=== PATIENT | female | born 1980 | race Caucasian/White ===

== ENCOUNTER 2018-01-15 13:35 | Inpatient (IN) | payer MEDICAID, OTHER ==
[~2018-01-15] VITALS: Ht 177.8 cm; Wt 51.2 kg
[~2018-01-15 13:35] MED LIST: DIAZ2 PO; PERC10TA27 PO
[2018-01-15 14:09] VITALS: BP 122/80; PULSE 97; RESP 16; TEMP 98.1; O2SAT 100
[2018-01-15] MEDS ORDERED: DIAZ10 PO (14:14)
[2018-01-15] MEDS ORDERED: OXYC1TAB36 PO (14:14)
[2018-01-15 15:45] LABS: AUTOMATED NEUTROPHIL # 2.6 TH/MM3 (1.8-7.7); BASOPHIL # 0.1 TH/MM3 (0-0.2); BASOPHIL % 1.3 % (0.0-2.0); EOSINOPHIL % 0.7 % (0.0-4.0); HEMATOCRIT 36.9 % (35.0-46.0); HEMOGLOBIN 11.7 GM/DL (11.6-15.3); LYMPH % 40.8 % (9.0-44.0); LYMPHOCYTE # 2.2 TH/MM3 (1.0-4.8); MEAN CELL VOLUME 71.8 FL (80.0-100.0); MEAN CORPUSCULAR HEMOGLOBIN 22.7 PG (27.0-34.0); MEAN CORPUSCULAR HGB CONC 31.6 % (32.0-36.0); MEAN PLATELET VOLUME 7.7 FL (7.0-11.0); MONO % 9.1 % (0.0-8.0); MONOCYTE # 0.5 TH/MM3 (0-0.9); NEUT % 48.1 % (16.0-70.0); PLATELET COUNT 380 TH/MM3 (150-450); RED BLOOD COUNT 5.13 MIL/MM3 (4.00-5.30); RED CELL DISTRIBUTION WIDTH 22.9 % (11.6-17.2); WHITE BLOOD COUNT 5.3 TH/MM3 (4.0-11.0)
[2018-01-15] MEDS ORDERED: LORazepam 2 MG/ML VIAL IV PUSH PRN ×4 (16:45)
[2018-01-15] MEDS ORDERED: LORazepam 1 MG TAB PO PRN (16:45)
[2018-01-15] MEDS ORDERED: FLUMAZENIL 0.5 MG/5 ML VIAL IV PUSH PRN (16:45)
[2018-01-15] MEDS ORDERED: LORazepam 2 MG TAB PO PRN (16:45)
[2018-01-15] MEDS ORDERED: DIVA250ER PO (16:58)
[2018-01-15] MEDS ORDERED: CITA10TA4 PO (16:58)
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
[2018-01-15 18:33] VITALS: BP 107/69; PULSE 89; RESP 18; TEMP 98.1; O2SAT 99
[2018-01-15 18:34] LABS: BACTERIA, URINE MANY /hpf; BILIRUBIN, URINE NEG (NEG); BLOOD, URINE NEG (NEG); GLUCOSE,URINE NEG (NEG); KETONE, URINE 10 mg/dL (NEG); MUCUS URINE MOD /lpf (OCC); NITRITE,URINE POS (NEG); PH, URINE 6.5 (5.0-8.5); SQUAMOUS EPITHELIAL CELL URINE 7 /hpf (0-5); URINE COLOR YELLOW (YELLW/STRAW); URINE LEUKOCYTE ESTERASE SMALL (NEG)
[2018-01-15 19:00] VITALS: BP 103/64; PULSE 82; RESP 18
[2018-01-15 20:49] LABS: ALBUMIN 3.7 GM/DL (3.4-5.0); ALKALINE PHOSPHATASE 66 U/L (45-117); ALT (GPT) 15 U/L (10-53); AST (GOT) 10 U/L (15-37); BICARBONATE 25.3 MEQ/L (21.0-32.0); BLOOD UREA NITROGEN 14 MG/DL (7-18); CALCIUM 9.4 MG/DL (8.5-10.1); CHLORIDE 99 MEQ/L (98-107); CREATININE 0.68 MG/DL (0.50-1.00); GLOMERULAR FILTRATION RATE 97 ML/MIN (>89); GLUCOSE,RANDOM 102 MG/DL (74-106); SODIUM (NA) 138 MEQ/L (136-145); TOTAL BILIRUBIN ADULT 0.7 MG/DL (0.2-1.0); TOTAL PROTEIN 7.6 GM/DL (6.4-8.2)
[2018-01-15 20:52] LABS: ACETAMINOPHEN LESS THAN 2.0 MCG/ML (10.0-30.0)
[2018-01-15] MEDS: SULFAMETHOXAZOLE-TRIMETHOPRIM DS 800-160 MG TAB PO SCH (21:00)
[2018-01-15 22:10] VITALS: BP 65/86; PULSE 86; RESP 18
[2018-01-15 22:16] VITALS: BP 102/65
--- NOTE | 2018-01-15 22:40 | PD ---
Physical Exam Time Seen by Provider: 22:39 Narrative Please refer to previous providers documentation for details from the patient's current visit Data Data Last Documented VS Vital Signs Date Time Temp Pulse Resp B/P (MAP) Pulse Ox O2 Delivery O2 Flow Rate FiO2 01/15/18 22:16 102/65 (77) 01/15/18 22:10 86 18 Room Air 01/15/18 18:33 98.1 99 Orders Orders Diet Regular Basic (01/15/18 Dinner) Complete Blood Count With Diff (01/15/18 15:08) Comprehensive Metabolic Panel (01/15/18 15:08) Thyroid Stimulating Hormone (01/15/18 15:08) Urinalysis - C+S If Indicated (01/15/18 15:08) Ed Urine Pregnancytest Poc (01/15/18 15:08) Psych Screen (01/15/18 15:08) Drug Screen, Random Urine (01/15/18 15:08) Alcohol (Ethanol) (01/15/18 15:08) Salicylates (Aspirin) (01/15/18 15:08) Tylenol (Acetaminophen) (01/15/18 15:08) Alcohol Withdrawal Asmt-Ciwa ONCE (01/15/18 16:38) Flumazenil Inj (Romazicon Inj) (01/15/18 16:45) Lorazepam (Ativan) (01/15/18 16:45) Lorazepam Inj (Ativan Inj) (01/15/18 16:45) Lorazepam (Ativan) (01/15/18 16:45) Lorazepam Inj (Ativan Inj) (01/15/18 16:45) Lorazepam Inj (Ativan Inj) (01/15/18 16:45) Lorazepam Inj (Ativan Inj) (01/15/18 16:45) Urine Culture (01/15/18 17:35) Sulfamet-Trimeth Ds 800-160 Mg (Bactrim (01/15/18 21:00) Valproic Acid (Depakene) (01/15/18 19:23) Valproic Acid (Depakene) (01/15/18 21:12) Ammonia (01/15/18 21:18) Electrocardiogram (01/15/18 ) Call Poison Control (01/15/18 22:28) Labs Laboratory Tests Test 01/15/18 14:26 01/15/18 17:35 01/15/18 19:30 01/15/18 21:30 White Blood Count 5.3 TH/MM3 Red Blood Count 5.13 MIL/MM3 Hemoglobin 11.7 GM/DL Hematocrit 36.9 % Mean Corpuscular Volume 71.8 FL Mean Corpuscular Hemoglobin 22.7 PG Mean Corpuscular Hemoglobin Concent 31.6 % Red Cell Distribution Width 22.9 % Platelet Count 380 TH/MM3 Mean Platelet Volume 7.7 FL Neutrophils (%) (Auto) 48.1 % Lymphocytes (%) (Auto) 40.8 % Monocytes (%) (Auto) 9.1 % Eosinophils (%) (Auto) 0.7 % Basophils (%) (Auto) 1.3 % Neutrophils # (Auto) 2.6 TH/MM3 Lymphocytes # (Auto) 2.2 TH/MM3 Monocytes # (Auto) 0.5 TH/MM3 Eosinophils # (Auto) 0.0 TH/MM3 Basophils # (Auto) 0.1 TH/MM3 CBC Comment DIFF FINAL Differential Comment Urine Color YELLOW Urine Turbidity HAZY Urine pH 6.5 Urine Specific [place] 1.019 Urine Protein TRACE mg/dL Urine Glucose (UA) NEG mg/dL Urine Ketones 10 mg/dL Urine Occult Blood NEG Urine Nitrite POS Urine Bilirubin NEG Urine Urobilinogen LESS THAN 2.0 MG/DL Urine Leukocyte Esterase SMALL Urine RBC 1 /hpf Urine WBC 11 /hpf Urine Squamous Epithelial Cells 7 /hpf Urine Bacteria MANY /hpf Urine Mucus MOD /lpf Microscopic Urinalysis Comment CULTURE INDICATED Urine Opiates Screen NEG Urine Barbiturates Screen NEG Urine Amphetamines Screen NEG Urine Benzodiazepines Screen POS Urine Cocaine Screen NEG Urine Cannabinoids Screen NEG Blood Urea Nitrogen 14 MG/DL Creatinine 0.68 MG/DL Random Glucose 102 MG/DL Total Protein 7.6 GM/DL Albumin 3.7 GM/DL Calcium Level 9.4 MG/DL Alkaline Phosphatase 66 U/L Aspartate Amino Transf (AST/SGOT) 10 U/L Alanine Aminotransferase (ALT/SGPT) 15 U/L Total Bilirubin 0.7 MG/DL Sodium Level 138 MEQ/L Potassium Level 4.1 MEQ/L Chloride Level 99 MEQ/L Carbon Dioxide Level 25.3 MEQ/L Anion Gap 14 MEQ/L Estimat Glomerular Filtration Rate 97 ML/MIN Thyroid Stimulating Hormone 3rd Gen 0.950 uIU/ML Salicylates Level LESS THAN 1.7 MG/DL Acetaminophen Level LESS THAN 2.0 MCG/ML Valproic Acid (Depakene) Level 125 MCG/ML 155 MCG/ML Ethyl Alcohol Level LESS THAN 3 MG/DL Ammonia 61 MCMOL/L [facility] Medical Record Reviewed: Yes Supervised Visit with PADDY: No Narrative Course 37-year-old female with history of personality disorder and alcohol dependency as well as seizure disorder, presents emergency department for evaluation under a Velasco act. Patient was seen and evaluated initially and signed out to me with lab work pending. Depakote level was added and it is reported to me at 2100 that the patient's Depakote level is 125. I discussed this with my attending physician. EKG and ammonia level are added as well as repeat Depakote level. Laboratory Tests Test 01/15/18 14:26 01/15/18 17:35 01/15/18 19:30 01/15/18 21:30 White Blood Count 5.3 TH/MM3 Red Blood Count 5.13 MIL/MM3 Hemoglobin 11.7 GM/DL Hematocrit 36.9 % Mean Corpuscular Volume 71.8 FL Mean Corpuscular Hemoglobin 22.7 PG Mean Corpuscular Hemoglobin Concent 31.6 % Red Cell Distribution Width 22.9 % Platelet Count 380 TH/MM3 Mean Platelet Volume 7.7 FL Neutrophils (%) (Auto) 48.1 % Lymphocytes (%) (Auto) 40.8 % Monocytes (%) (Auto) 9.1 % Eosinophils (%) (Auto) 0.7 % Basophils (%) (Auto) 1.3 % Neutrophils # (Auto) 2.6 TH/MM3 Lymphocytes # (Auto) 2.2 TH/MM3 Monocytes # (Auto) 0.5 TH/MM3 Eosinophils # (Auto) 0.0 TH/MM3 Basophils # (Auto) 0.1 TH/MM3 CBC Comment DIFF FINAL Differential Comment Urine Color YELLOW Urine Turbidity HAZY Urine pH 6.5 [address]rine Specific [place] 1.019 Urine Protein TRACE mg/dL Urine Glucose (UA) NEG mg/dL Urine Ketones 10 mg/dL Urine Occult Blood NEG Urine Nitrite POS Urine Bilirubin NEG Urine Urobilinogen LESS THAN 2.0 MG/DL Urine Leukocyte Esterase SMALL Urine RBC 1 /hpf Urine WBC 11 /hpf Urine Squamous Epithelial Cells 7 /hpf Urine Bacteria MANY /hpf Urine Mucus MOD /lpf Microscopic Urinalysis Comment CULTURE INDICATED Urine Opiates Screen NEG Urine Barbiturates Screen NEG Urine Amphetamines Screen NEG Urine Benzodiazepines Screen POS Urine Cocaine Screen NEG Urine Cannabinoids Screen NEG Blood Urea Nitrogen 14 MG/DL Creatinine 0.68 MG/DL Random Glucose 102 MG/DL Total Protein 7.6 GM/DL Albumin 3.7 GM/DL Calcium Level 9.4 MG/DL Alkaline Phosphatase 66 U/L Aspartate Amino Transf (AST/SGOT) 10 U/L Alanine Aminotransferase (ALT/SGPT) 15 U/L Total Bilirubin 0.7 MG/DL Sodium Level 138 MEQ/L Potassium Level 4.1 MEQ/L Chloride Level 99 MEQ/L Carbon Dioxide Level 25.3 MEQ/L Anion Gap 14 MEQ/L Estimat Glomerular Filtration Rate 97 ML/MIN Thyroid Stimulating Hormone 3rd Gen 0.950 uIU/ML Salicylates Level LESS THAN 1.7 MG/DL Acetaminophen Level LESS THAN 2.0 MCG/ML Ethyl Alcohol Level LESS THAN 3 MG/DL Ammonia 61 MCMOL/L Valproic Acid (Depakene) Level 155 MCG/ML Repeat Depakote level is 155. Patient is moved to a medical bed in place to monitor. Call was placed to [place] hospitalist for admission. Diagnosis Primary Impression: Urinary tract infection Qualified Codes: N39.0 - Urinary tract infection, site not specified Additional Impressions: Valproic acid toxicity Qualified Codes: T42.6X4A - Poisoning by other antiepileptic and sedative- hypnotic drugs, undetermined, initial encounter Hyperammonemia Alcohol dependence Qualified Codes: F10.29 - Alcohol dependence with unspecified alcohol-induced disorder Admitting Information Admitting Physician Requests: Admit Condition: Stable Ciara Hernandez January 15, 2018 22:40
--- NOTE | 2018-01-15 22:54 | PD ---
Physical Exam Narrative I, Dr. Lara, have reviewed the advance practice practitioner's documentation and am in agreement, met with the patient face to face, made the diagnosis, and the medical decision making was done by me. *My assessment and Findings: Suicidal ideation vs. depression 37yo F with personality disorder under Velasco Act because of suicidal ideation. Labs reviewed, no leukocytosis. H/H normal. CMP unremarkable. Normal anion gap. TSH normal. Utox is positive for benzodiazepine. UA showed positive nitrite. Pt given bactrim. Acetaminophen negative. Salicylate level negative. Alcohol negative. Valproic acid level is elevated at 125. Pt said she did take an extra depakote 1000mg PO this morning because she had a seizure and normally takes it at night. Pt has normal mental status, is AAOx3. Ammonia is mildly elevated which can be normal in patient with chronic valproic acid use. EKG showed NSR 84bpm. Normal axis. QTc 408ms. QRS normal. Repeat valproic acid level 2 hours after the first is increasing to 155. Since the level is increasing, will admit the patient to medicine service with a psych consult. I discussed with poison control and they recommended 50gm of activated chorcoal now and to repeat valproic acid level every 4 to 6 hours until there is 2 level that is trending down. Said we can consider 25gm of activated chorcoal in 2 to 4 hours if repeat valproic acid level is still going up. Discussed with Dr. Arias and admitted to medicine. Data Data Last Documented VS Vital Signs Date Time Temp Pulse Resp B/P (MAP) Pulse Ox O2 Delivery O2 Flow Rate FiO2 01/15/18 22:16 102/65 (77) 01/15/18 22:10 86 18 Room Air 01/15/18 18:33 98.1 99 Orders Orders Diet Regular Basic (01/15/18 Dinner) Complete Blood Count With Diff (01/15/18 15:08) Comprehensive Metabolic Panel (01/15/18 15:08) Thyroid Stimulating Hormone (01/15/18 15:08) Urinalysis - C+S If Indicated (01/15/18 15:08) Ed Urine Pregnancytest Poc (01/15/18 15:08) Psych Screen (01/15/18 15:08) Drug Screen, Random Urine (01/15/18 15:08) Alcohol (Ethanol) (01/15/18 15:08) Salicylates (Aspirin) (01/15/18 15:08) Tylenol (Acetaminophen) (01/15/18 15:08) Alcohol Withdrawal Asmt-Ciwa ONCE (01/15/18 16:38) Flumazenil Inj (Romazicon Inj) (01/15/18 16:45) Lorazepam (Ativan) (01/15/18 16:45) Lorazepam Inj (Ativan Inj) (01/15/18 16:45) Lorazepam (Ativan) (01/15/18 16:45) Lorazepam Inj (Ativan Inj) (01/15/18 16:45) Lorazepam Inj (Ativan Inj) (01/15/18 16:45) Lorazepam Inj (Ativan Inj) (01/15/18 16:45) Urine Culture (01/15/18 17:35) Sulfamet-Trimeth Ds 800-160 Mg (Bactrim (01/15/18 21:00) Valproic Acid (Depakene) (01/15/18 19:23) Valproic Acid (Depakene) (01/15/18 21:12) Ammonia (01/15/18 21:18) Electrocardiogram (01/15/18 ) Call Poison Control (01/15/18 22:28) Admit Order (Ed Use Only) (01/15/18 22:45) Consult Psychiatry (01/15/18 ) Labs Laboratory Tests Test 01/15/18 14:26 01/15/18 17:35 01/15/18 19:30 01/15/18 21:30 White Blood Count 5.3 TH/MM3 Red Blood Count 5.13 MIL/MM3 Hemoglobin 11.7 GM/DL Hematocrit 36.9 % Mean Corpuscular Volume 71.8 FL Mean Corpuscular Hemoglobin 22.7 PG Mean Corpuscular Hemoglobin Concent 31.6 % Red Cell Distribution Width 22.9 % Platelet Count 380 TH/MM3 Mean Platelet Volume 7.7 FL Neutrophils (%) (Auto) 48.1 % Lymphocytes (%) (Auto) 40.8 % Monocytes (%) (Auto) 9.1 % Eosinophils (%) (Auto) 0.7 % Basophils (%) (Auto) 1.3 % Neutrophils # (Auto) 2.6 TH/MM3 Lymphocytes # (Auto) 2.2 TH/MM3 Monocytes # (Auto) 0.5 TH/MM3 Eosinophils # (Auto) 0.0 TH/MM3 Basophils # (Auto) 0.1 TH/MM3 CBC Comment DIFF FINAL Differential Comment Urine Color YELLOW Urine Turbidity HAZY Urine pH 6.5 Urine Specific [place] 1.019 Urine Protein TRACE mg/dL Urine Glucose (UA) NEG mg/dL Urine Ketones 10 mg/dL Urine Occult Blood NEG Urine Nitrite POS Urine Bilirubin NEG Urine Urobilinogen LESS THAN 2.0 MG/DL Urine Leukocyte Esterase SMALL Urine RBC 1 /hpf Urine WBC 11 /hpf Urine Squamous Epithelial Cells 7 /hpf Urine Bacteria MANY /hpf Urine Mucus MOD /lpf Microscopic Urinalysis Comment CULTURE INDICATED Urine Opiates Screen NEG Urine Barbiturates Screen NEG Urine Amphetamines Screen NEG Urine Benzodiazepines Screen POS Urine Cocaine Screen NEG Urine Cannabinoids Screen NEG Blood Urea Nitrogen 14 MG/DL Creatinine 0.68 MG/DL Random Glucose 102 MG/DL Total Protein 7.6 GM/DL Albumin 3.7 GM/DL Calcium Level 9.4 MG/DL Alkaline Phosphatase 66 U/L Aspartate Amino Transf (AST/SGOT) 10 U/L Alanine Aminotransferase (ALT/SGPT) 15 U/L Total Bilirubin 0.7 MG/DL Sodium Level 138 MEQ/L Potassium Level 4.1 MEQ/L Chloride Level 99 MEQ/L Carbon Dioxide Level 25.3 MEQ/L Anion Gap 14 MEQ/L Estimat Glomerular Filtration Rate 97 ML/MIN Thyroid Stimulating Hormone 3rd Gen 0.950 uIU/ML Salicylates Level LESS THAN 1.7 MG/DL Acetaminophen Level LESS THAN 2.0 MCG/ML Valproic Acid (Depakene) Level 125 MCG/ML 155 MCG/ML Ethyl Alcohol Level LESS THAN 3 MG/DL Ammonia 61 MCMOL/L [facility] Supervised Visit with PADDY: Yes Interpretation(s) EKG: NSR 84bpm. Normal axis. No ST segment elevation or depression. Narrow QRS. QTc normal at 408ms. Diagnosis Primary Impression: Valproic acid toxicity Qualified Codes: T42.6X4A - Poisoning by other antiepileptic and sedative- hypnotic drugs, undetermined, initial encounter Additional Impression: Urinary tract infection Qualified Codes: N39.0 - Urinary tract infection, site not specified Admitting Information Admitting Physician Requests: Admit Dang Lara DO January 15, 2018 22:54
[2018-01-15] MEDS ORDERED: SODIUM CHLOR 0.9% 1000 ML INJ 1,000 ML IV ONE (23:00)
[2018-01-15] MEDS ORDERED: ACTIVATED CHARCOAL LIQUID 25 GM/120 ML BTL PO/NG ONE (23:00)
[2018-01-15 23:35] VITALS: BP 111/65; PULSE 84; RESP 15; O2SAT 99
[2018-01-16] MEDS ORDERED: SODIUM CHLOR 0.9% 1000 ML INJ 1,000 ML IV SCH (00:25)
[2018-01-16] MEDS ORDERED: ACETAMINOPHEN 325 MG TAB PO PRN (00:30)
[2018-01-16] MEDS ORDERED: SENNOSIDES 8.6 MG TAB PO PRN (00:30)
[2018-01-16] MEDS ORDERED: FLUMAZENIL 0.5 MG/5 ML VIAL IV PUSH PRN (00:30)
[2018-01-16] MEDS ORDERED: BISACODYL 10 MG SUPP RECTAL PRN (00:30)
[2018-01-16] MEDS ORDERED: LORazepam 2 MG/ML VIAL IV PUSH PRN ×4 (00:30)
[2018-01-16] MEDS ORDERED: LORazepam 2 MG TAB PO PRN (00:30)
[2018-01-16] MEDS ORDERED: LACTULOSE SYRUP 20 GM/30 ML CUP PO PRN (00:30)
[2018-01-16] MEDS ORDERED: NALOXONE HCL 0.4 MG/ML AMP IV PUSH PRN (00:30)
[2018-01-16] MEDS ORDERED: SODIUM CHLORIDE 0.9% FLUSH 10 ML FLUSH IV FLUSH PRN (00:30)
[2018-01-16] MEDS ORDERED: MAGNESIUM HYDROXIDE SUSP 30 ML CUP PO PRN (00:30)
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
[2018-01-16] MEDS ORDERED: ONDANSETRON ODT 4 MG TAB PO PRN (00:45)
[2018-01-16 01:13] VITALS: BP 96/71; PULSE 89; RESP 20; TEMP 97.3; O2SAT 99
[2018-01-16] MEDS: LACTULOSE SYRUP 20 GM/30 ML CUP PO SCH ×4 (01:35→16:20)
[2018-01-16 04:00] VITALS: BP 99/73; PULSE 86; PULSE 88; RESP 20; TEMP 98; O2SAT 99
[2018-01-16] MEDS: LORazepam 1 MG TAB PO PRN ×4 (05:17→16:21)
[2018-01-16 08:00] VITALS: PULSE 82
[2018-01-16 08:25] VITALS: BP 111/68; PULSE 80; RESP 16; TEMP 98.3; O2SAT 100
[2018-01-16] MEDS ORDERED: THIAMINE HCL 100 MG TAB PO SCH (09:00)
[2018-01-16] MEDS ORDERED: SODIUM CHLORIDE 0.9% FLUSH 10 ML FLUSH IV FLUSH SCH (09:00)
[2018-01-16] MEDS ORDERED: MULTIVITAMINS/MINERALS THERAPEUTIC TAB PO SCH (09:00)
[2018-01-16] MEDS ORDERED: DOCUSATE SODIUM 50 MG/SENNA 8.6 MG TAB PO SCH (09:00)
[2018-01-16] MEDS ORDERED: FOLIC ACID 1 MG TAB PO SCH (09:00)
[2018-01-16] MEDS: SULFAMETHOXAZOLE-TRIMETHOPRIM DS 800-160 MG TAB PO SCH (09:09)
[2018-01-16] MEDS ORDERED: FOLI1TAB6 PO (11:44)
[2018-01-16] MEDS ORDERED: THERM PO (11:44)
[2018-01-16] MEDS ORDERED: THIA100 PO (11:44)
--- NOTE | 2018-01-16 11:50 | HHI.DS ---
Discharge Summary Admission Date January 15, 2018 at 22:49 Discharge Date: Jan 16, 2018 Admitting Diagnosis depakote toxicity; UTI; alcohol dependency; Velasco Act (1) Suicidal ideation ICD Code: R45.851 - Suicidal ideations (2) Valproic acid toxicity ICD Code: T42.6X1A - Poisoning by other antiepileptic and sedative-hypnotic drugs, accidental (unintentional), initial encounter Status: Acute (3) Urinary tract infection ICD Code: N39.0 - Urinary tract infection, site not specified Status: Acute (4) Hyperammonemia ICD Code: E72.20 - Disorder of urea cycle metabolism, unspecified Status: Acute (5) Alcohol dependence ICD Code: F10.20 - Alcohol dependence, uncomplicated Status: Acute (6) Medical clearance for psychiatric admission ICD Code: Z00.8 - Encounter for other general examination Status: Acute Procedures none Brief History - From Admission 37-year-old female with past medical history significant for seizure disorder, alcohol abuse and unspecified mood disorder presented to the emergency department under a Velasco act. According to the Velasco act the patient has suicidal ideation. She endorses repetitive thoughts, agitation, and voices that tell her to harm herself. She states she has had significant insomnia. She claims that she had a seizure yesterday morning and at that time took 4 of her Depakote pills to avoid having an additional seizure. Her valproic acid level is significantly elevated and continues to rise. She complains of chronic pain and headaches. Denies chest pain or shortness of breath. No abdominal pain. No nausea/vomiting/diarrhea. No lateralizing signs/symptoms. CBC/BMP: 01/15/18 1426 01/15/18 1930 Significant Findings Laboratory Tests Test 01/15/18 14:26 01/15/18 17:35 01/15/18 19:30 01/15/18 21:30 Mean Corpuscular Volume 71.8 FL (80.0-100.0) Mean Corpuscular Hemoglobin 22.7 PG (27.0-34.0) Mean Corpuscular Hemoglobin Concent 31.6 % (32.0-36.0) Red Cell Distribution Width 22.9 % (11.6-17.2) Monocytes (%) (Auto) 9.1 % (0.0-8.0) Urine Turbidity HAZY (CLEAR) Urine Ketones 10 mg/dL (NEG) Urine Nitrite POS (NEG) Urine Leukocyte Esterase SMALL (NEG) Urine WBC 11 /hpf (0-5) Urine Bacteria MANY /hpf (NONE) Urine Mucus MOD /lpf (OCC) Urine Benzodiazepines Screen POS (NEG) Aspartate Amino Transf (AST/SGOT) 10 U/L (15-37) Salicylates Level LESS THAN 1.7 MG/DL Acetaminophen Level LESS THAN 2.0 MCG/ML Valproic Acid (Depakene) Level 125 MCG/ML (50-100) 155 MCG/ML (50-100) Ammonia 61 MCMOL/L (11-32) Test 01/16/18 04:01 01/16/18 11:22 Ammonia 34 MCMOL/L (11-32) Hospital Course This is a 37-year-old female who was admitted yesterday under Velasco act for suicidal ideations. She admits that she took the remainder of her home medications over the last 3 days in an attempt to quiet her mind which has been full of suicidal thoughts and ideations for at least one week. She is not sure why. Following her on telemetry she has remained stable from a cardiac standpoint. Her valproic acid levels have returned to therapeutic range. On admission she was found to have an incidental urinary tract infection. History revealed that she has a history of alcohol abuse and ammonia levels when checked were elevated. Ammonia levels are now trending downward. Although she needs ongoing monitoring for her ammonia level and pending cultures to be reviewed, she would be better served at this point to be on a [facility] unit where she can be balanced on psychiatric meds to address the primary issue of suicide risk. My suggestion is to consult the medicine team to continue following her cultures and lab work. She is stable for transfer to [facility]. Pt Condition on Discharge: Fair Discharge Disposition: Disc to Psych Care Fac Discharge Time: <= 30 minutes Discharge Instructions DIET: Follow Instructions for: As Tolerated, No Restrictions Activities you can perform: Weight Bearing as Karel Thomas MD Jan 16, 2018 11:50
[2018-01-16 12:10] VITALS: BP 109/79; PULSE 78; RESP 18; TEMP 98.2; O2SAT 99
--- NOTE | 2018-01-16 13:13 | PD.PSY.CON ---
Provisional Diagnosis Admission Date January 15, 2018 at 22:49 [place] I. Bipolar disorder, recent episode depressed vs alcohol-induced disorder, alcohol use disorder, polysubstance dependence including alcohol, Valium, opiates [place] II. Unspecified personality disorder, significant cluster B traits present [place] III. Seizures [place] IV. Extensive history of poor impulse control, self cutting behavior, multiple psychiatric admissions, noncompliant with medications [place] V. 40 History of Present Illness Service Psychiatry Consult Requested By Medicine Reason for Consult Suicidal attempt Primary Care Physician No Primary Care Physician HPI The patient is a 37-year-old woman, domiciled in [facility] with her boyfriend, no kids, unemployed, supported by [facility], with psychiatric history of bipolar disorder, PTSD, polysubstance dependence including alcohol, Valium, opiates, multiple psychiatric admissions, multiple suicidal attempts, extensive self cutting behavior, poor impulse control, with past medical history significant for seizure disorder, who presented to the emergency department under a Velasco act. According to the Velasco act the patient has suicidal ideation. She endorses repetitive thoughts, agitation, and voices that tell her to harm herself. She states she has had significant insomnia. She claims that she had a seizure yesterday morning and at that time took 4 of her Depakote pills to avoid having an additional seizure. Her valproic acid level is significantly elevated and continues to rise. She was admitted due to Depakote overdose, Patient reportedly took for Depakote approximately 24 to 36 hours ago, Patient's reliability is in question as Depakote level continues to rise, 125->155, Poison control contacted, recommend activated charcoal and 1 L normal saline. Hyperammonemia, May be patient's baseline. Consulted to psychiatry to address suicidal attempt. Psychiatric evaluation I find a patient bent in a position, with dark glasses on, very irritable, oppositional and resistant to the evaluation. He takes a lot of redirection and reassurance to make the patient talk. She says that she is upset "I did not want to be here, I wanted to be ". Patient says that she prefers not to talk about it. She says that she just broke off with her significant other after 6 year relationship and she feels done, empty, hopeless, helpless," not able to continue with his life", patient states multiple time "I prefer to be that without him". Patient reports that she has been drinking alcohol every day,about a bottle of vodka, she also has abuses Valium and opiates occasionally. The patient is fully oriented 3, no attention deficit, no fluctuation of consciousness. Patient does not contract for safety in the hospital. He says that she feels suicidal "and I can just try to commit suicide at any given moment". Review of Systems Constitutional: DENIES: Diaphoretic episodes, Fatigue, Fever, Weight gain, Weight loss, Chills, Dizziness, Change in appetite, Night Sweats Endocrine: DENIES: Abnorml menstrual pattern, Heat/cold intolerance, Polydipsia , Polyuria, Polyphagia Eyes: DENIES: Blurred vision, Diplopia, Eye inflammation, Eye pain, Vision loss , Photosensitivity, Double Vision Ears, nose, mouth, throat: DENIES: Tinnitus, Hearing loss, Vertigo, Nasal discharge, Oral lesions, Throat pain, Hoarseness, Ear Pain, Running Nose, Epistaxis, Sinus Pain, Toothache, Odynophagia Respiratory: DENIES: Apneas, Cough, Snoring, Wheezing, Hemoptysis, Sputum production, Shortness of breath Cardiovascular: DENIES: Chest pain, Palpitations, Syncope, Dyspnea on Exertion , PND, Lower Extremity Edema, Orthopnea, Claudication Gastrointestinal: DENIES: Abdominal pain, Black stools, Bloody stools, Constipation, Diarrhea, Nausea, Vomiting, Difficulty Swallowing, Anorexia Genitourinary: DENIES: Abnormal vaginal bleeding, Dysmenorrhea, Dyspareunia, Sexual dysfunction, Urinary frequency, Urinary incontinence, Urgency, Hematuria , Dysuria, Nocturia, Vaginal discharge Musculoskeletal: DENIES: Joint pain, Muscle aches, Stiffness, Joint Swelling, Back pain, Neck pain Integumentary: DENIES: Abnormal pigmentation, Pruritus, Rash, Nail changes, Breast masses, Breast skin changes, Nipple discharge Hematologic/lymphatic: DENIES: Bruising, Lymphadenopathy Immunologic/allergic: DENIES: Eczema, Urticaria Neurologic: DENIES: Abnormal gait, Headache, Localized weakness, Paresthesias, Seizures, Speech Problems, Tremor, Poor Balance Psychiatric: COMPLAINS OF: Depression, Suicidal Ideation, DENIES: Anxiety, Confusion, Mood changes, Hallucinations, Agitation, Homicidal Ideation, Delusions Past Family Social History Coded Allergies: No Known Allergies (Verified , 06/30/08) Reported Medications Divalproex ER (Depakote ER) 250 Mg Codey, 250 MG PO BID for Control Seizures, # 30 TAB 0 Refills 01/15/18 Citalopram (Citalopram) 10 Mg Tab, 10 MG PO DAILY for Control Depression, #30 TAB 0 Refills 01/15/18 Diazepam (Valium) 10 Mg Tab, 10 MG PO TID Y for ANXIETY AND/OR INSOMNIA, TAB 0 Refills 01/15/18 Oxycodone-Acetaminophen (Oxycodone-Acetaminophen) 10-325 mg Tab, 1 TAB PO Q4H Y for PAIN, TAB 0 Refills 01/15/18 Current Medications Medications (Trade) Dose Ordered Sig/Megan Route Start Time Stop Time Status Last Admin (Bactrim Ds 800-160 Mg) 1 tab Q12HR PO 01/15/18 21:00 01/16/18 09:09 Sodium Chloride 1,000 ml @ 70 mls/hr [id number] IV 01/16/18 00:25 01/16/18 01:45 (NS Flush) 2 ml UNSCH PRN IV FLUSH 01/16/18 00:30 (NS Flush) 2 ml BID IV FLUSH 01/16/18 09:00 01/16/18 09:14 (Tylenol) 650 mg Q4H PRN PO 01/16/18 00:30 (Zofran Odt) 4 mg Q6H PRN PO 01/16/18 00:45 (Narcan Inj) 0.4 mg UNSCH PRN IV PUSH 01/16/18 00:30 (Monisha-Colace) 1 tab BID PO 01/16/18 09:00 (Milk Of Magnesia Liq) 30 ml Q12H PRN PO 01/16/18 00:30 (Senokot) 17.2 mg Q12H PRN PO 01/16/18 00:30 (Dulcolax Supp) 10 mg DAILY PRN RECTAL 01/16/18 00:30 (Lactulose Liq) 30 ml DAILY PRN PO 01/16/18 00:30 (Romazicon Inj) 0.2 mg Q1M PRN IV PUSH 01/16/18 00:30 (Ativan) 1 mg Q4H PRN PO 01/16/18 00:30 01/16/18 09:09 (Ativan Inj) 1 mg Q4H PRN IV PUSH 01/16/18 00:30 01/16/18 01:07 (Ativan) 2 mg Q2H PRN PO 01/16/18 00:30 (Ativan Inj) 2 mg Q2H PRN IV PUSH 01/16/18 00:30 (Ativan Inj) 2 mg Q1H PRN IV PUSH 01/16/18 00:30 (Ativan Inj) 2 mg Q15M PRN IV PUSH 01/16/18 00:30 (Folate) 1 mg DAILY PO 01/16/18 09:00 01/21/18 08:59 01/16/18 09:09 (Vitamin B1) 100 mg DAILY PO 01/16/18 09:00 01/16/18 09:09 (Theragran M Tab) 1 tab DAILY PO 01/16/18 09:00 01/21/18 08:59 01/16/18 09:09 (Lactulose Liq) 30 ml QID PO 01/16/18 00:30 01/16/18 12:28 Family Psych History The patient has an uncle who committed suicide and was diagnosed with severe depression Social History Patient was born and raised in [place], she lives in [facility] with her boyfriend, no kids, unemployed, supported by [employer], her highest level of education is high school Patient's Strengths (min. 2) Verbal communication Physical Exam Patient seems to be hypoactive, with marked psychomotor retardation, but no tremors, no alcohol withdrawal, no stiffness at this moment. Vital Signs Vital Signs Date Time Temp Pulse Resp B/P (MAP) Pulse Ox O2 Delivery O2 Flow Rate FiO2 01/16/18 08:25 98.3 80 16 111/68 (82) 100 01/16/18 08:00 Room Air I/O 01/16/18 01/16/18 01/17/18 08:00 16:00 00:00 Intake Total 1360 ml Balance 1360 ml Lab Results Test 01/15/18 14:26 01/15/18 17:35 01/15/18 19:30 01/15/18 21:30 White Blood Count 5.3 TH/MM3 Red Blood Count 5.13 MIL/MM3 Hemoglobin 11.7 GM/DL Hematocrit 36.9 % Mean Corpuscular Volume 71.8 FL Mean Corpuscular Hemoglobin 22.7 PG Mean Corpuscular Hemoglobin Concent 31.6 % Red Cell Distribution Width 22.9 % Platelet Count 380 TH/MM3 Mean Platelet Volume 7.7 FL Neutrophils (%) (Auto) 48.1 % Lymphocytes (%) (Auto) 40.8 % Monocytes (%) (Auto) 9.1 % Eosinophils (%) (Auto) 0.7 % Basophils (%) (Auto) 1.3 % Neutrophils # (Auto) 2.6 TH/MM3 Lymphocytes # (Auto) 2.2 TH/MM3 Monocytes # (Auto) 0.5 TH/MM3 Eosinophils # (Auto) 0.0 TH/MM3 Basophils # (Auto) 0.1 TH/MM3 CBC Comment DIFF FINAL Differential Comment Urine Color YELLOW Urine Turbidity HAZY Urine pH 6.5 Urine Specific [place] 1.019 Urine Protein TRACE mg/dL Urine Glucose (UA) NEG mg/dL Urine Ketones 10 mg/dL Urine Occult Blood NEG Urine Nitrite POS Urine Bilirubin NEG Urine Urobilinogen LESS THAN 2.0 MG/DL Urine Leukocyte Esterase SMALL Urine RBC 1 /hpf Urine WBC 11 /hpf Urine Squamous Epithelial Cells 7 /hpf Urine Bacteria MANY /hpf Urine Mucus MOD /lpf Microscopic Urinalysis Comment CULTURE INDICATED Urine Opiates Screen NEG Urine Barbiturates Screen NEG Urine Amphetamines Screen NEG Urine Benzodiazepines Screen POS Urine Cocaine Screen NEG Urine Cannabinoids Screen NEG Blood Urea Nitrogen 14 MG/DL Creatinine 0.68 MG/DL Random Glucose 102 MG/DL Total Protein 7.6 GM/DL Albumin 3.7 GM/DL Calcium Level 9.4 MG/DL Alkaline Phosphatase 66 U/L Aspartate Amino Transf (AST/SGOT) 10 U/L Alanine Aminotransferase (ALT/SGPT) 15 U/L Total Bilirubin 0.7 MG/DL Sodium Level 138 MEQ/L Potassium Level 4.1 MEQ/L Chloride Level 99 MEQ/L Carbon Dioxide Level 25.3 MEQ/L Anion Gap 14 MEQ/L Estimat Glomerular Filtration Rate 97 ML/MIN Thyroid Stimulating Hormone 3rd Gen 0.950 uIU/ML Salicylates Level LESS THAN 1.7 MG/DL Acetaminophen Level LESS THAN 2.0 MCG/ML Valproic Acid (Depakene) Level 125 MCG/ML 155 MCG/ML Ethyl Alcohol Level LESS THAN 3 MG/DL Ammonia 61 MCMOL/L Test 01/16/18 04:01 01/16/18 11:22 Ammonia 34 MCMOL/L Valproic Acid (Depakene) Level 93 MCG/ML 67 MCG/ML Date/Time Source Procedure Growth Status 01/15/18 17:35 Urine Random Urine Urine Culture Pending Worksheet Mental Status Examination Appearance: Appropriate Consciousness: Alert Orientation: x4 Motor Activity: Normal gait Speech: Unremarkable Language: Adequate Fund of Knowledge: Adequate Attention and Concentration: Adequate Memory: Unremarkable Mood: Appropriate, Sad Affect: Sad Thought Content: Appropriate Hallucination Type: None Delusion Type: None Suicidal Ideation: Yes Suicidal Plan: Yes Suicidal Intention: No Homicidal Ideation: No Homicidal Plan: No Homicidal Intention: No Insight: Poor Judgment: Poor Assessment & Plan Problem List: (1) Bipolar depression ICD Codes: F31.30 - Bipolar disorder, current episode depressed, mild or moderate severity, unspecified Assessment & Plan: On psychiatric evaluation today the patient is found bent in a position, very oppositional, resistant, poorly cooperative with interview. The patient reports that she feels frustrated because she failed he had recent suicide attempt by overdosing with Depakote. The patient reports that after breaking up with her boyfriend after 6 years of relationship she felt useless, helpless, hopeless, very depressed, rejected and she overdosed to commit suicide. At this moment the patient continues to be suicidal, she fails been joan for safety in the hospital. Patient needs to continue in one- to-one in the medical floor. She has a psychiatric history of bipolar disorder , PTSD, multiple psychiatric admissions, polysubstance dependence, poor impulse control, multiple suicidal attempts, extensive self cutting behavior, poor coping skill, and at this moment she represents an immediate danger to herself and she needs psychiatric admission for stabilization and safety. Please, transfer the patient to psychiatry once medically stable. Other than CIWA protocol I am not recommending any psychotropic at this moment. She might benefit of Seroquel later. Brief supportive psychotherapy provided. Patient could be a good candidate for [facility]. Assessment & Plan Estimated LOS: Zoltan Coburn MD Jan 16, 2018 13:13
--- NOTE | 2018-01-16 14:45 | EKG ---
Date Performed: 01/15/2018 Time Performed: 21:40:04 PTAGE: 37 years EKG: Sinus rhythm WITH SHORT FL INTERVAL BORDERLINE ECG Precordial leads likely switched, otherwise no change from k[place]by or. PREVIOUS TRACING : 10/29/2008 01.27 DOCTOR: Reuben Tinoco Interpretating Date/Time 01/16/2018 14:44:52
[2018-01-16 16:15] VITALS: BP 103/74; PULSE 84; RESP 18; TEMP 98; O2SAT 100
== END 2018-01-16 19:17 | DRG 918 ==
LOC: NEPJ 13:35 → NEDA 22:49 → N04B 01-16 01:10
PROVIDERS: ADMIT Family Medicine; ATTEND Family Medicine
DX: T42.6X2A Poisoning by other antiepileptic and sedative-hypnotic drugs, intentional self-harm, initial encounter (principal); R45.851 Suicidal ideations; E72.20 Disorder of urea cycle metabolism, unspecified; F31.30 Bipolar disorder, current episode depressed, mild or moderate severity, unspecified; N39.0 Urinary tract infection, site not specified; F19.20 Other psychoactive substance dependence, uncomplicated; G40.909 Epilepsy, unspecified, not intractable, without status epilepticus; F10.20 Alcohol dependence, uncomplicated; F43.10 Post-traumatic stress disorder, unspecified; B96.20 Unspecified Escherichia coli [E. coli] as the cause of diseases classified elsewhere; F17.210 Nicotine dependence, cigarettes, uncomplicated; G47.00 Insomnia, unspecified; Z79.891 Long term (current) use of opiate analgesic; Z79.899 Other long term (current) drug therapy
CPT/HCPCS: 80053; 80164; 80307; 81001; 82140; 82272; 84443; 84703; 85025; 87077; 87086; 87186; 93005; 96374; J2060; J7030

== ENCOUNTER 2018-01-16 19:21 | Inpatient (IN) | payer OTHER ==
[~2018-01-16] VITALS: Ht 177.8 cm; Wt 51.1 kg
[~2018-01-16 19:21] MED LIST changes: +CITA10TA4 PO; +DIAZ10 PO; -DIAZ2 PO; +DIVA250ER PO; +FOLI1TAB6 PO; +OXYC1TAB36 PO; -PERC10TA27 PO; +THERM PO; +THIA100 PO
[2018-01-16 21:55] VITALS: BP 108/69; PULSE 105; RESP 18; TEMP 98.3; O2SAT 100
[2018-01-16] MEDS ORDERED: ACETAMINOPHEN 325 MG TAB PO PRN (22:45)
[2018-01-16] MEDS ORDERED: diphenhydrAMINE HCL 50 MG/ML VIAL - HS PRN IM (22:45)
[2018-01-16] MEDS ORDERED: hydrOXYzine HCL 50 MG TAB PO PRN (22:45)
[2018-01-16] MEDS ORDERED: diphenhydrAMINE HCL 50 MG CAP - HS PRN PO (22:45)
[2018-01-16] MEDS ORDERED: ALUMINUM/MAGNESIUM/SIMETH 30 ML CUP PO PRN (22:45)
[2018-01-16] MEDS ORDERED: MAGNESIUM HYDROXIDE SUSP 30 ML CUP PO PRN (22:45)
[2018-01-16] MEDS ORDERED: LORazepam 2 MG/ML VIAL IV PUSH PRN ×4 (23:00)
[2018-01-16] MEDS ORDERED: FLUMAZENIL 0.5 MG/5 ML VIAL IV PUSH PRN (23:00)
[2018-01-16] MEDS: LORazepam 2 MG TAB PO PRN (23:27)
[2018-01-17] MEDS: LORazepam 2 MG TAB PO PRN (01:25)
[2018-01-17] MEDS: LORazepam 1 MG TAB PO PRN ×2 (03:18→07:49)
[2018-01-17 06:26] VITALS: BP 126/74; PULSE 91; RESP 18; TEMP 97.7; O2SAT 97
[2018-01-17] MEDS ORDERED: NICOTINE 21 MG/24 HR PATCH T-DERMAL SCH (09:00)
[2018-01-17 14:40] LABS: CHOLESTEROL/ HDL RATIO 2.5 RATIO; HDL CHOLESTEROL 56.4 MG/DL (40.0-60.0)
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
[2018-01-17] MEDS ORDERED: REMOVE OLD NICOTINE PATCH T-DERMAL SCH (21:00)
== END 2018-01-17 17:05 | disposition home or self-care (01) | DRG 885 ==
LOC: H270 19:30
PROVIDERS: ADMIT Psychiatry & Neurology Psychiatry; ATTEND Psychiatry & Neurology Psychiatry
DX: F31.31 Bipolar disorder, current episode depressed, mild (principal); F10.10 Alcohol abuse, uncomplicated; F43.25 Adjustment disorder with mixed disturbance of emotions and conduct; Z90.01 Acquired absence of eye
CPT/HCPCS: 80061; 80164

== ENCOUNTER 2018-01-30 20:22 | Emergency (ER) | payer OTHER ==
[2018-01-30 20:35] VITALS: BP 107/54; PULSE 99; RESP 16; TEMP 98.4; O2SAT 100
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
== END 2018-01-31 00:05 | disposition home or self-care (01) ==
LOC: NEPC 20:22
DX: F10.20 Alcohol dependence, uncomplicated (principal); F17.210 Nicotine dependence, cigarettes, uncomplicated; Z79.899 Other long term (current) drug therapy
CPT/HCPCS: 99281

== ENCOUNTER 2018-02-07 20:40 | Emergency (ER) | payer OTHER ==
[~2018-02-07] VITALS: Ht 177.8 cm; Wt 51.1 kg
[2018-02-07 20:47] VITALS: BP 131/73; PULSE 122; RESP 18; TEMP 99.2; O2SAT 95
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
[2018-02-07 21:13] LABS: AUTOMATED NEUTROPHIL # 1.7 TH/MM3 (1.8-7.7); BASOPHIL # 0.2 TH/MM3 (0-0.2); BASOPHIL % 2.6 % (0.0-2.0); EOSINOPHIL # 0.2 TH/MM3 (0-0.4); EOSINOPHIL % 2.2 % (0.0-4.0); HEMATOCRIT 39.6 % (35.0-46.0); HEMOGLOBIN 12.3 GM/DL (11.6-15.3); LYMPH % 62.9 % (9.0-44.0); LYMPHOCYTE # 4.3 TH/MM3 (1.0-4.8); MEAN CORPUSCULAR HGB CONC 31.1 % (32.0-36.0); MONO % 7.1 % (0.0-8.0); MONOCYTE # 0.5 TH/MM3 (0-0.9); NEUT % 25.2 % (16.0-70.0); PLATELET COUNT 305 TH/MM3 (150-450); RED BLOOD COUNT 5.35 MIL/MM3 (4.00-5.30); RED CELL DISTRIBUTION WIDTH 24.3 % (11.6-17.2); WHITE BLOOD COUNT 6.8 TH/MM3 (4.0-11.0)
[2018-02-07 21:35] LABS: ALBUMIN 4.1 GM/DL (3.4-5.0); AST (GOT) 26 U/L (15-37); BICARBONATE 22.7 MEQ/L (21.0-32.0); BLOOD UREA NITROGEN 10 MG/DL (7-18); CALCIUM 8.8 MG/DL (8.5-10.1); CHLORIDE 104 MEQ/L (98-107); CREATININE 0.55 MG/DL (0.50-1.00); GLOMERULAR FILTRATION RATE 124 ML/MIN (>89); GLUCOSE,RANDOM 88 MG/DL (74-106); SODIUM (NA) 142 MEQ/L (136-145)
[2018-02-07 21:36] LABS: ALT (GPT) 22 U/L (10-53)
[2018-02-07 21:46] LABS: BACTERIA, URINE RARE /hpf; BILIRUBIN, URINE NEG (NEG); BLOOD, URINE NEG (NEG); GLUCOSE,URINE NEG (NEG); KETONE, URINE NEG (NEG); MUCUS URINE FEW /lpf (OCC); NITRITE,URINE NEG (NEG); SQUAMOUS EPITHELIAL CELL URINE 1 /hpf (0-5); URINE COLOR Straw (YELLW/STRAW); URINE LEUKOCYTE ESTERASE NEG (NEG)
[2018-02-07 21:46] LABS: ALKALINE PHOSPHATASE 92 U/L (45-117); TOTAL BILIRUBIN ADULT 0.4 MG/DL (0.2-1.0); TOTAL PROTEIN 7.8 GM/DL (6.4-8.2)
[2018-02-07 22:07] LABS: BANDS 1 % (0-6); BASOPHILS 1 % (0-2); LYMPHOCYTES 80 % (9-44); METAMYELOCYTES 1 % (0-1); MONOCYTES 3 % (0-8); NEUTROPHIL # MANUAL DIFF 1.1 TH/MM3 (1.8-7.7); POLYS (SEG NEUTROPHILS) 14 % (16-70)
[2018-02-07 22:12] VITALS: BP 101/54; PULSE 91; RESP 17; O2SAT 96
[2018-02-07] MEDS ORDERED: LORazepam 2 MG/ML VIAL IV PUSH PRN ×4 (22:30)
[2018-02-07] MEDS ORDERED: LORazepam 2 MG TAB PO PRN (22:30)
[2018-02-07] MEDS ORDERED: FLUMAZENIL 0.5 MG/5 ML VIAL IV PUSH PRN (22:30)
[2018-02-08 02:30] VITALS: BP 88/51; PULSE 114; RESP 18; TEMP 98.7; O2SAT 97
[2018-02-08 05:54] VITALS: BP 101/71
[2018-02-08 06:09] VITALS: BP 101/71; PULSE 63; RESP 18; TEMP 98.7; O2SAT 98
[2018-02-08 07:27] VITALS: BP 123/80; PULSE 79; RESP 18; O2SAT 98
[2018-02-08] MEDS: LORazepam 1 MG TAB PO PRN ×2 (07:45→08:28)
[2018-02-08 08:18] VITALS: BP 137/80; PULSE 79; RESP 16; O2SAT 98
[2018-02-08 09:00] VITALS: BP 137/80; PULSE 79; RESP 18; O2SAT 98
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
--- NOTE | 2018-02-08 10:57 | PD ---
Physical Exam Date Seen by Provider: Feb 08, 2018 Time Seen by Provider: 10:56 Narrative 37-year-old female previously Velasco acted and medically cleared for psychiatric evaluation, has been seen and evaluated by psychiatric staff. She is currently deemed psychiatrically stable for discharge. Patient remains medically stable for discharge. Follow-up will be based on psychiatric note. Data Data Last Documented VS Vital Signs Date Time Temp Pulse Resp B/P (MAP) Pulse Ox O2 Delivery O2 Flow Rate FiO2 02/08/18 09:00 79 18 137/80 (99) 98 Room Air 02/08/18 06:09 98.7 Orders Orders Complete Blood Count With Diff (02/07/18 21:01) Comprehensive Metabolic Panel (02/07/18 21:01) Thyroid Stimulating Hormone (02/07/18 21:01) Urinalysis - C+S If Indicated (02/07/18 21:01) Ed Urine Pregnancytest Poc (02/07/18 21:01) Valproic Acid (Depakene) (02/07/18 21:01) Psych Screen (02/07/18 21:01) Drug Screen, Random Urine (02/07/18 21:01) Alcohol (Ethanol) (02/07/18 21:01) Alcohol Withdrawal Asmt-Ciwa ONCE (02/07/18 22:22) Flumazenil Inj (Romazicon Inj) (02/07/18 22:30) Lorazepam (Ativan) (02/07/18 22:30) Lorazepam Inj (Ativan Inj) (02/07/18 22:30) Lorazepam (Ativan) (02/07/18 22:30) Lorazepam Inj (Ativan Inj) (02/07/18 22:30) Lorazepam Inj (Ativan Inj) (02/07/18 22:30) Lorazepam Inj (Ativan Inj) (02/07/18 22:30) Diet Regular Basic (02/08/18 Breakfast) Diet Regular Basic (02/08/18 Lunch) Labs Laboratory Tests Test 02/07/18 20:10 02/07/18 21:20 White Blood Count 6.8 TH/MM3 Red Blood Count 5.35 MIL/MM3 Hemoglobin 12.3 GM/DL Hematocrit 39.6 % Mean Corpuscular Volume 74.0 FL Mean Corpuscular Hemoglobin 23.0 PG Mean Corpuscular Hemoglobin Concent 31.1 % Red Cell Distribution Width 24.3 % Platelet Count 305 TH/MM3 Mean Platelet Volume 7.0 FL Neutrophils (%) (Auto) 25.2 % Lymphocytes (%) (Auto) 62.9 % Monocytes (%) (Auto) 7.1 % Eosinophils (%) (Auto) 2.2 % Basophils (%) (Auto) 2.6 % Neutrophils # (Auto) 1.7 TH/MM3 Lymphocytes # (Auto) 4.3 TH/MM3 Monocytes # (Auto) 0.5 TH/MM3 Eosinophils # (Auto) 0.2 TH/MM3 Basophils # (Auto) 0.2 TH/MM3 CBC Comment AUTO DIFF Differential Total Cells Counted 100 Neutrophils % (Manual) 14 % Band Neutrophils % 1 % Lymphocytes % 80 % Monocytes % 3 % Basophils % 1 % Neutrophils # (Manual) 1.1 TH/MM3 Metamyelocytes 1 % Differential Comment FINAL DIFF MANUAL Atypical Lymphocytes % Blood Urea Nitrogen 10 MG/DL Creatinine 0.55 MG/DL Random Glucose 88 MG/DL Total Protein 7.8 GM/DL Albumin 4.1 GM/DL Calcium Level 8.8 MG/DL Alkaline Phosphatase 92 U/L Aspartate Amino Transf (AST/SGOT) 26 U/L Alanine Aminotransferase (ALT/SGPT) 22 U/L Total Bilirubin 0.4 MG/DL Sodium Level 142 MEQ/L Potassium Level 4.1 MEQ/L Chloride Level 104 MEQ/L Carbon Dioxide Level 22.7 MEQ/L Anion Gap 15 MEQ/L Estimat Glomerular Filtration Rate 124 ML/MIN Thyroid Stimulating Hormone 3rd Gen 1.010 uIU/ML Valproic Acid (Depakene) Level 5 MCG/ML Ethyl Alcohol Level 419 MG/DL Urine Color Straw Urine Turbidity CLEAR Urine pH 5.0 Urine Specific [place] 1.005 Urine Protein NEG mg/dL Urine Glucose (UA) NEG mg/dL Urine Ketones NEG mg/dL Urine Occult Blood NEG Urine Nitrite NEG Urine Bilirubin NEG Urine Urobilinogen LESS THAN 2 mg/dL Urine Leukocyte Esterase NEG Urine RBC LESS THAN 1 /hpf Urine WBC 1 /hpf Urine Squamous Epithelial Cells 1 /hpf Urine Bacteria RARE /hpf Urine Mucus FEW /lpf Microscopic Urinalysis Comment CULT NOT INDICATED Urine Opiates Screen NEG Urine Barbiturates Screen NEG Urine Amphetamines Screen NEG Urine Benzodiazepines Screen NEG Urine Cocaine Screen NEG Urine Cannabinoids Screen NEG MDM Medical Record Reviewed: No Supervised Visit with PADDY: No Narrative Course 37-year-old female previously Velasco acted and medically cleared for psychiatric evaluation, has been seen and evaluated by psychiatric staff. She is currently deemed psychiatrically stable for discharge. Patient remains medically stable for discharge. Follow-up will be based on psychiatric note. Diagnosis Primary Impression: Medical clearance for psychiatric admission Additional Impressions: Alcohol intoxication Chronic alcohol abuse Referrals: [facility] Patient Instructions: General Instructions Med/Other Pt SpecificInfo: No Meds Exist/No RX given Disposition: DISCHARGE HOME Condition: Stable Anshu Dunne Feb 08, 2018 10:57
== END 2018-02-08 11:11 | disposition home or self-care (01) ==
LOC: NEPJ 20:40
DX: F10.229 Alcohol dependence with intoxication, unspecified (principal); F31.9 Bipolar disorder, unspecified; G89.29 Other chronic pain; R51 Headache; Z87.891 Personal history of nicotine dependence
CPT/HCPCS: 80053; 80164; 80307; 81001; 84443; 84703; 85007; 85027; 99284